=== PATIENT | female | born 1935 | race Caucasian/White ===

== ENCOUNTER 2016-08-21 09:44 | Emergency (ER) | payer MEDICARE, SELFPAY | END 2016-08-21 14:08 | disposition home or self-care (01) | LOC: ER1 09:44 | DX: M48.54XA Collapsed vertebra, not elsewhere classified, thoracic region, initial encounter for fracture (principal); J44.9 Chronic obstructive pulmonary disease, unspecified; M81.0 Age-related osteoporosis without current pathological fracture; I10 Essential (primary) hypertension | CPT/HCPCS: 72040; 72072; 81001; 99283; Q0162 ==

== ENCOUNTER 2016-09-03 09:10 | Emergency (ER) | payer MEDICARE | END 2016-09-03 10:10 | disposition left against medical advice (07) | LOC: ER1 09:10 | DX: Z53.8 Procedure and treatment not carried out for other reasons (principal) ==